=== PATIENT | female | born 1975 | race African-American/Black ===

== ENCOUNTER 2016-12-06 13:48 | Emergency (ER) | payer MEDICAID, MEDICARE, OTHER ==
[~2016-12-06] VITALS: Ht 165.1 cm; Wt 65.0 kg
[2016-12-06] MEDS ORDERED: IBUPROFEN 400MG TABLET PO ONE (14:45)
[2016-12-06] MEDS ORDERED: ACETAMINOPHEN 500MG TABLET PO ONE (14:45)
[2016-12-06] MEDS ORDERED: LIDOCAINE/EPINEPHR/TETRACAINE 3ML TP ONE (16:30)
[2016-12-06] MEDS ORDERED: LIDOCAINE HCL 1%/EPI 1:200,000 30 ML VIAL MC ONE (16:30)
[2016-12-06] MEDS ORDERED: TETANUS, DIPHTHERIA, PERTUSSIS VAC/PF 0.5ML (>7YR OLD) IM ONE (16:30)
[2016-12-06 16:48] VITALS: BP 144/71
[2016-12-06] MEDS ORDERED: ONDANSETRON 4MG ODT PO ONE (17:45)
[2016-12-06] MEDS ORDERED: CEPHALEXIN 500MG CAPSULE PO ONE (17:45)
== END 2016-12-06 18:30 | disposition home or self-care (01) ==
LOC: ER 13:48
DX: S01.511A Laceration without foreign body of lip, initial encounter (principal); R10.13 Epigastric pain; Y04.0XXA Assault by unarmed brawl or fight, initial encounter; Y93.89 Activity, other specified; Y92.89 Other specified places as the place of occurrence of the external cause; Y99.8 Other external cause status
CPT/HCPCS: 12011; 70486; 74176; 81025; 90471; 90715; 99284; Q0162

== ENCOUNTER 2017-11-11 20:50 | Emergency (ER) | payer MEDICAID ==
[~2017-11-11] VITALS: Ht 162.6 cm; Wt 87.0 kg
[2017-11-11] MEDS ORDERED: OXYCODONE HCL/ACETAMINOPHEN 5/325MG TABLET PO ONE (23:15)
[2017-11-11] MEDS ORDERED: BUPIVACAINE HCL/PF 0.25% (2.5MG/ML) 10ML INFIL ONE (23:15)
[2017-11-11] MEDS ORDERED: BUPIVACAINE HCL 0.25% (2.5MG/ML) 50ML INFIL NR (23:30)
[2017-11-12 02:06] VITALS: BP 138/88
== END 2017-11-12 02:09 | disposition home or self-care (01) ==
LOC: ER 20:50
DX: K04.7 Periapical abscess without sinus (principal); F12.90 Cannabis use, unspecified, uncomplicated
CPT/HCPCS: 99283; J3490

== ENCOUNTER 2019-07-17 10:20 | Emergency (ER) | payer MEDICAID, OTHER ==
[~2019-07-17] VITALS: Ht 162.6 cm; Wt 113.0 kg
[2019-07-17] MEDS ORDERED: IBUPROFEN 600MG TABLET PO ONE (11:00)
[2019-07-17 11:04] VITALS: BP 136/78
== END 2019-07-17 11:05 | disposition home or self-care (01) ==
LOC: ER 10:51
DX: K04.7 Periapical abscess without sinus (principal); F12.10 Cannabis abuse, uncomplicated
CPT/HCPCS: 99282; 99283